=== PATIENT | female | born 1950 | race Caucasian/White ===

== ENCOUNTER 2016-08-16 07:50 | Emergency (ER) | payer OTHER ==
[~2016-08-16] VITALS: Wt 64.0 kg
[2016-08-16] MEDS ORDERED: ONDANSETRON 4 MG INJ IV STA (08:07)
[2016-08-16] MEDS ORDERED: morphine 4 MG/ML VIAL IV STA (08:07)
[2016-08-16] MEDS ORDERED: SOD CHLORIDE 0.9% 1,000 ML IV STA (08:07)
[2016-08-16 08:31] LABS: ADD SCAN DIFF NO
[2016-08-16] MEDS ORDERED: ATOR20TA38 PO (08:37)
--- NOTE | 2016-08-16 08:46 | RADRPT ---
PROCEDURE: XR Chest. CLINICAL INDICATION: Chest pain, abdominal pain TECHNIQUE: Single frontal view of the chest was obtained. COMPARISON: None FINDINGS: The heart is within normal limits. The thoracic aorta is calcified. The lungs are clear. There is no pleural effusion or pneumothorax. RPTAT: AA IMPRESSION: No acute disease. Calcified aorta consistent with atherosclerotic disease. .Isma Rolle MD, MD Date Time Electronically viewed and signed by .Isma Rolle MD, on 08/16/2016 08:45 .S/
[2016-08-16 08:48] LABS: BASOPHILS % 0.5 % (0.0-2.0); EOSINOPHILS # 0.1 10^3/ul (0.0-0.5); EOSINOPHILS % 1.7 % (0.0-7.0); HEMATOCRIT 45.8 % (37.0-47.0); HEMOGLOBIN 14.9 g/dl (12.0-16.0); LYMPHOCYTES # 3.3 10^3/ul (0.8-2.9); LYMPHOCYTES % 40.7 % (15.0-51.0); MEAN CORPUSCULAR HEMOGLOBIN 28.8 pg (29.0-33.0); MEAN CORPUSCULAR HGB CONC 32.5 g/dl (32.0-37.0); MEAN CORPUSCULAR VOLUME 88.6 fl (82.0-101.0); MEAN PLATELET VOLUME 9.2 fl (7.4-10.4); MONOCYTE # 0.6 10^3/ul (0.3-0.9); MONOCYTES % 7.1 % (0.0-11.0); NEUTROPHIL # 4.1 10^3/ul (1.6-7.5); NEUTROPHILS % 49.8 % (39.0-77.0); PLATELET COUNT 291 10^3/UL (140-415); RED BLOOD COUNT 5.17 10^6/ul (4.20-5.40); RED CELL DISTRIBUTION WIDTH 12.7 % (11.5-14.5); WHITE BLOOD COUNT 8.2 10^3/ul (4.8-10.8)
[2016-08-16 09:01] LABS: ALANINE AMINOTRANSFERASE 48 IU/L (13-69); ALBUMIN 4.4 g/dl (3.3-4.9); ALKALINE PHOSPHATASE 107 IU/L (42-121); ANION GAP 11 (8-16); ASPARTATE AMINO TRANSFERASE 45 IU/L (15-46); BILIRUBIN,INDIRECT 0.6 mg/dl (0-1.1); BILIRUBIN,TOTAL 0.6 mg/dl (0.2-1.3); BLOOD UREA NITROGEN 14 mg/dl (7-20); CALCIUM 9.4 mg/dl (8.4-10.2); CARBON DIOXIDE 31 mmol/L (21-31); CHLORIDE 103 mmol/L (97-110); CREATININE 0.64 mg/dl (0.44-1.00); GLUCOSE 109 mg/dl (70-220); POTASSIUM 4.5 mmol/L (3.5-5.1); SODIUM 140 mmol/L (135-144); TOTAL PROTEIN 8.4 g/dl (6.1-8.1)
[2016-08-16 09:03] LABS: INR 0.91; PROTIME 12.2 Sec (12.2-14.2)
[2016-08-16 09:04] LABS: PARTIAL THROMBOPLASTIN TIME 33.3 Sec (25.0-35.0)
[2016-08-16 09:12] LABS: TROPONIN-I < 0.012 ng/ml (0.00-0.12)
--- NOTE | 2016-08-16 09:35 | RADRPT ---
PROCEDURE: CT Abdomen and Pelvis without contrast. CLINICAL INDICATION: Right lower quadrant pain. TECHNIQUE: CT scan of the abdomen and pelvis without contrast was performed on a multidetector hig h-resolution CT scanner. The patient was scanned without intravenous contrast. Coronal and sagittal reformatted images were obtained from the axial source images. Images were reviewed on a high-resol [employer] PACS workstation. The total exam CTDI equals 13.35 mGy and the total exam DLP equals 732.66 mG y-cm. One or more of the following dose reduction techniques were used: Automated exposure control. Adjustment of the mA and/or kV according to patient size. Use of iterative reconstruction technique. COMPARISON: None FINDINGS: CT abdomen: The lung bases are clear. The heart size is normal, without pericardial thickening or effusion. Th e liver is normal in size and density without focal mass or intrahepatic biliary dilatation. The sp donnie is normal in size and homogeneous in density. The stomach is partially collapsed, but is gross ly unremarkable. The pancreas as visualized is normal. The gallbladder is remarkable for a few tin y calcified gallstones. There is no evidence for biliary dilatation. The adrenal glands are symmetr ic and normal. The kidneys are symmetrically unremarkable as well. No renal calculus or obstructiv e uropathy or mass lesion is seen. The aorta is of normal caliber. Aortic vascular calcifications are present. There is no retroperit aguilar lymphadenopathy. The claribel hepatis region is clear. The bowel and mesentery, as visualized, are equally unremarkable. CT pelvis: The small bowel loops situated within the pelvis are unremarkable. There is a normal appendix. The p elvic organs are normal. The pelvic sidewalls and inguinal regions are clear. The sigmoid colon an d rectum are unremarkable. No mass, lymphadenopathy, or free fluid is seen. No acute inflammation is seen. The surrounding osseous structures are remarkable for degenerative spondylosis of the spin e. No osteolytic or osteoblastic lesion is detected. IMPRESSION: 1. No mass, lymphadenopathy, or focal acute inflammatory process is identified. 2. Normal appendix. 3. Cholelithiasis without evidence of acute cholecystitis. 4. Scattered aortoiliac atherosclerosis. RPTAT: BB .Ata Jang MD, Date Time Electronically viewed and signed by .Ata Jang MD, on 08/16/2016 09:34 .O/
[2016-08-16] MEDS ORDERED: HYDR-902 PO (10:12)
[2016-08-16] MEDS ORDERED: ONDA4TAB14 PO (10:13)
[2016-08-16 10:57] VITALS: BP 137/78; PULSE 78; RESP 18
--- NOTE | 2016-08-16 12:42 | ERD ---
ER Documentation Chief Complaint Date/Time DATE: 08/16/16 TIME: 12:39 Chief Complaint RLQ AP FOR 2WKS, NO DYSURIA. NO HEMATURIA. NO N/V. NO DIARRHEA HPI Patient is a 66-year-old female with hypertension who presents with abdominal pain. The patient has had abdominal pain for the past 2 weeks. The pain is in the right lower quadrant. The pain comes and goes. It hurts worse with movement. Last night the pain became worse and more sharp in nature. There is been no treatment as of yet. The patient's primary doctor is Dr. Mejia. Upon review of old medical records this is the patient's first visit to the emergency department. ROS All systems reviewed and are negative except as per history of present illness. Medications Home Meds Active Scripts Ondansetron (Ondansetron Odt) 4 Mg Tab.rapdis, 4 MG PO Q6H Y for NAUSEA AND/OR VOMITING, #10 TAB Prov:CONY AGOSTO MD 08/16/16 Hydrocodone/Acetaminophen ([place] 10-325 Tablet) 1 Each Tablet, 1 TAB PO Q6H Y for PAIN, #7 TAB Prov:CONY AGOSTO MD 08/16/16 Reported Medications Atorvastatin Calcium* (Atorvastatin Calcium*) 20 Mg Tablet, 20 MG PO QHS, #30 TAB 08/16/16 Allergies Allergies: Coded Allergies: No Known Allergy (Unverified , 08/16/16) PMhx/Soc Medical and Surgical Hx: pt denies Medical Hx, pt denies Surgical Hx Hx Alcohol Use: No Hx Substance Use: No Hx Tobacco Use: No Smoking Status: Never smoker FmHx Family History: diabetes Physical Exam Vitals Vital Signs Date Time Temp Pulse Resp B/P Pulse Ox O2 Delivery O2 Flow Rate FiO2 08/16/16 10:57 78 18 137/78 98 Room Air 08/16/16 07:54 97.2 77 21 157/80 98 Physical Exam Const: Mild distress secondary to pain Head: Atraumatic Eyes: Normal Conjunctiva ENT: Normal External Ears, Nose and Mouth. Neck: Full range of motion..~ No meningismus. Resp: Clear to auscultation bilaterally Cardio: Regular rate and rhythm, no murmurs Abd: Soft, right lower quadrant tenderness to palpation without rebound or guarding Skin: No petechiae or rashes Back: No midline or flank tenderness Ext: No cyanosis, or edema Neur: Awake and alert Psych: Normal Mood and Affect Result Diagram: 08/16/16 0800 08/16/16 0800 Results 24 hrs Laboratory Tests Test 08/16/16 08:00 White Blood Count 8.210^3/ul Red Blood Count 5.1710^6/ul Hemoglobin 14.9g/dl Hematocrit 45.8% Mean Corpuscular Volume 88.6fl Mean Corpuscular Hemoglobin 28.8pg Mean Corpuscular Hemoglobin Concent 32.5g/dl Red Cell Distribution Width 12.7% Platelet Count 14373^3/UL Mean Platelet Volume 9.2fl Neutrophils % 49.8% Lymphocytes % 40.7% Monocytes % 7.1% Eosinophils % 1.7% Basophils % 0.5% Nucleated Red Blood Cells % 0.0/100WBC Neutrophils # 4.110^3/ul Lymphocytes # 3.310^3/ul Monocytes # 0.610^3/ul Eosinophils # 0.110^3/ul Basophils # 0.010^3/ul Nucleated Red Blood Cells # 0.010^3/ul Prothrombin Time 12.2Sec Prothrombin Time Ratio 1.0 INR International Normalized Ratio 0.91 Activated Partial Thromboplast Time 33.3Sec Sodium Level 140mmol/L Potassium Level 4.5mmol/L Chloride Level 103mmol/L Carbon Dioxide Level 31mmol/L Anion Gap 11 Blood Urea Nitrogen 14mg/dl Creatinine 0.64mg/dl Glucose Level 109mg/dl Calcium Level 9.4mg/dl Total Bilirubin 0.6mg/dl Direct Bilirubin 0.00mg/dl Indirect Bilirubin 0.6mg/dl Aspartate Amino Transf (AST/SGOT) 45IU/L Alanine Aminotransferase (ALT/SGPT) 48IU/L Alkaline Phosphatase 107IU/L Troponin I < 0.012ng/ml Total Protein 8.4g/dl Albumin 4.4g/dl Globulin 4.00g/dl Albumin/Globulin Ratio 1.10 Lipase 110U/L Current Medications Medications (Trade) Dose Ordered Sig/Gunnar Route PRN Reason Start Time Stop Time Status Last Admin Dose Admin Sodium Chloride (NS) 1,000 ml @ 1,000 mls/hr Q1H STAT IV 08/16/16 08:07 08/16/16 09:06 DC 08/16/16 08:19 Morphine Sulfate (morphine) 4 mg ONCE STAT IV 08/16/16 08:07 08/16/16 08:08 DC 08/16/16 08:19 Ondansetron HCl (Zofran Inj) 4 mg ONCE STAT IV 08/16/16 08:07 08/16/16 08:08 DC 08/16/16 08:18 Procedures/MDM CT scan shows no acute process per radiology. Patient is a 66-year-old female with hypertension who presents with abdominal pain. The patient had a full workup including laboratory studies and CT scan of the abdomen and pelvis. At this point there is no sign of significant infection or obstruction. I doubt cholecystitis, pancreatitis, appendicitis, or bowel obstruction. I believe outpatient management is appropriate. Departure Diagnosis: Primary Impression: Abdominal pain Abdominal location: right lower quadrant Qualified Code: R10.31 - Right lower quadrant abdominal pain Condition: Fair Patient Instructions: Abdominal Pain Referrals: WILLIAM MEJIA MD (PCP) Additional Instructions: FOLLOW UP WITH YOUR PRIMARY CARE PHYSICIAN TOMORROW.Return to this facility if you are not improving as expected. CONY AGOSTO MD August 16, 2016 12:42
== END 2016-08-16 10:57 | disposition home or self-care (01) ==
LOC: E/R 07:50
DX: R10.31 Right lower quadrant pain (principal)
CPT/HCPCS: 36415; 71010; 74176; 80053; 83690; 84484; 85025; 85610; 85730; 93005; 96374; 96375; J2270; J2405; J7030; Z7502